=== PATIENT | female | born 1975 | race Caucasian/White ===

== ENCOUNTER 2017-01-06 18:20 | Emergency (ER) | payer MEDICAID ==
[~2017-01-06] VITALS: Ht 162.6 cm; Wt 63.0 kg
[2017-01-06 18:26] VITALS: BP 144/72
== END 2017-01-06 19:10 | disposition home or self-care (01) ==
LOC: ED 18:20
DX: N30.90 Cystitis, unspecified without hematuria (principal)

== ENCOUNTER 2017-08-07 11:01 | Emergency (ER) | payer MEDICAID ==
[2017-08-07 12:39] VITALS: BP 135/84
== END 2017-08-07 12:39 | disposition home or self-care (01) ==
LOC: ED 11:01
DX: S46.911A Strain of unspecified muscle, fascia and tendon at shoulder and upper arm level, right arm, initial encounter (principal); X50.0XXA Overexertion from strenuous movement or load, initial encounter; Y93.89 Activity, other specified; Y92.89 Other specified places as the place of occurrence of the external cause; Y99.8 Other external cause status
CPT/HCPCS: J1885; Q0092

== ENCOUNTER 2018-09-11 18:55 | Emergency (ER) | payer MEDICAID ==
[~2018-09-11] VITALS: Ht 157.5 cm; Wt 63.0 kg
[2018-09-11 19:07] VITALS: Ht 157.5 cm; Wt 63.0 kg
[2018-09-11 23:18] VITALS: BP 117/77
== END 2018-09-11 23:15 | disposition home or self-care (01) ==
LOC: ED 18:55
DX: R07.89 Other chest pain (principal); R21 Rash and other nonspecific skin eruption
CPT/HCPCS: Q0162